=== PATIENT | male | born 1940 | race Caucasian/White ===

== ENCOUNTER 2017-03-04 14:56 | Inpatient (IN) ==
[2017-03-04 15:53] LABS: MANUAL DIFF NEEDED? NO
[2017-03-04 16:02] LABS: BASO% 0.3 % (0.0-0.8); EOS# 0.28 X1000 (0.0-0.7); EOS% 4.8 % (0.0-10.0); HEMATOCRIT 38.8 % (42.0-52.0); LYMPH# 1.38 X1000 (1.2-3.4); LYMPH% 23.8 % (20.5-51.1); MCH 29.7 PG (27-31); MCHC 33.5 g/dL (33-37); MCV 88.8 FL (81-99); MONO# 0.66 X1000 (0.11-0.59); MONO% 11.4 % (1.7-9.3); NEUT% 59.7 % (42.2-75.2); PLT 236 X1000 (130-400); RBC 4.37 XMIL (4.7-6.1)
--- NOTE | 2017-03-04 16:16 | Diag Imaging Result Doc PS360 ---
EXAM: CHEST-2 VIEWS - 03/04/2017 HISTORY: SOB TECHNIQUE: Chest two views COMPARISON: 12/22/2015 FINDINGS: Heart size is normal. There are COPD/emphysematous changes with hyperexpanded lungs. The lungs are mildly more hyperexpanded compared to previous exam, suggesting COPD exacerbation. There a few small granulomas from old granulomatous disease which are stable. Questionable opacity at the mid posterior chest on the lateral view, there is no corresponding opacity identified on the PA view. There is no other consolidation, pleural effusion, or pneumothorax identified. IMPRESSION: COPD/emphysema with hyperexpanded lungs. Questionable opacity at mid posterior chest on lateral view, but not apparent on the PA view. Follow-up by chest radiographs or correlation with CT thorax is recommended. Electronically signed by Manish Ventura 03/04/2017 4:14 PM
[2017-03-04 16:20] LABS: AGAP 10; ALBUMIN 3.2 g/dL (3.5-5.0); ALKALINE PHOSPHATASE 68 U/L (32-122); BUN 26 mg/dL (8-22); CALCIUM 8.3 mg/dL (8.8-10.2); CHLORIDE 102 mmol/L (98-107); COSMO 284; GOT 9 U/L (10-34); GPT 9 U/L (10-44); POTASSIUM 3.8 mmol/L (3.5-5.1); SODIUM 140 mmol/L (136-145); TCO2 28 mmol/L (25-35); TOTAL BILIRUBIN 0.19 mg/dL (0.20-1.00); TOTAL PROTEIN 5.6 g/dL (6.3-8.3)
--- NOTE | 2017-03-04 16:21 | EKG Report ---
Test Performed on : 03/04/2017 3:15:30 PM Test Reason : sob Blood Pressure : / mmHG Vent. Rate : 068 BPM Atrial Rate : 068 BPM P-R Int : 152 ms QRS Dur : 084 ms QT Int : 420 ms P-R-T Axes : 064 068 080 degrees QTc Int : 446 ms Normal sinus rhythm. Septal infarct , age undetermined Abnormal ECG When compared with ECG of 25-DEC-2015 12:49, Significant changes have occurred Unconfirmed Result
--- NOTE | 2017-03-04 16:37 | ED EKG INTERP ---
This chart was entered by Nida Sexton Scribe, acting as scribe for Jacky Franco MD. EKG Interpretation - EKG Time of EKG reading by physician:: 15:15 EKG Read and Signed by:: Jacky Franco EKG Interpretation (*Must complete 3 of following elements*): Abnormal Rate: 68 (septal infarct, age undetermined) Rhythm: NSR Attestation - Physician/ NICHOL Attestation Patient care was provided by Advanced Practice Provider:: No The physician spent face to face time with patient:: Yes Advanced Practice Provider documentation review:: Supervising physician onsite and consulted in the evaluation and care of this patient. The physician did have a face to face encounter with the patient. This chart was documented by the indicated scribe, (Nida Sexton Scribe) and accurately reflects the services I performed and decisions made by meSalvador Wenli X, MD, as attested by the provider's signature.
[2017-03-04] MEDS ORDERED: SOLU-MEDROL IV ONE (16:39)
[2017-03-04] MEDS ORDERED: DUONEB (A & A) INH ONE (16:39)
[2017-03-04 16:42] LABS: ALLEN TEST YES; BE 4.3 mmoll (-3.0-3.0); BLOOD TYPE ARTERIAL; DRAW SITE R RADIAL; O2(CT) 17.8 mL/dL (15.0-23.0); PCO2(98.6) 47 mmHg (35-45); PO2(98.6) 101 mmHg (60-100); SAMPLE BLOOD; SAO2 98.5 % (95.0-100.0); THB 13.8 g/dL (11.5-17.4); pH(98.6) 7.41 (7.35-7.45)
[2017-03-04 16:43] LABS: MODALITY CANNULA
[2017-03-04] MEDS ORDERED: NS 1,000 ML IV ONE (16:51)
--- NOTE | 2017-03-04 17:37 | PROVIDER DOCUMENTATION ---
This chart was entered by Nida Sexton Scribe, acting as scribe for Jacky Franco MD. HPI-Respiratory General - General Chief Complaint: Shortness of Breath Stated Complaint: SOB Time Seen by Provider: 03/04/17 16:38 Source: patient Allergies/Adverse Reactions: Patient Allergies Allergy/AdvReac Type Severity Reaction Status Date / Time No Known Allergies Allergy Verified 03/04/17 15:25 Home Medications: Home Medication List Medication Instructions Recorded Confirmed Last Taken Type Esomeprazole Magnesium [Nexium] 40 mg PO QAM 11/20/13 12/22/15 12/21/15 08:00 History Indapamide 2.5 mg PO QAM 11/20/13 12/22/15 12/21/15 08:00 History Benazepril HCl 20 mg PO BID 12/22/15 12/22/15 12/21/15 20:00 History Rivaroxaban [Xarelto] 15 mg PO QAM 12/22/15 12/22/15 03/04/17 08:30 History BENAZEpril [Lotensin] 20 mg PO BID #0 tablet 01/03/16 Unknown Rx Diltiazem C.d. [Cardizem Cd] 180 mg PO BID #60 capsule NS 01/03/16 Unknown Rx Fluticasone/Salmet 250/50 INH 1 puff INH RTBID #1 inhaler 01/03/16 03/04/17 08: 00 Rx [Advair 250/50 Diskus] Levofloxacin 500 mg PO DAILY #30 tablet NS 01/03/16 Unknown Rx Methylprednisolone [Medrol Dosepak] 4 mg PO DIRECTED #1 package NS 01/03/16 Unknown Rx Tiotropium [place] Inhaler 1 puff INH RTDAILY #30 inhaler 01/03/16 03/04/17 08: 00 Rx [Spiriva] Albuterol [Albuterol Neb] 2.5 mg INH Q4H PRN PRN 03/04/17 03/04/17 03/04/17 13: 00 History Alprazolam [Xanax] 0.5 mg PO Q6H PRN PRN 03/04/17 03/04/17 03/04/17 08:00 History Diltiazem HCl [Cartia Xt] 180 mg PO DAILY 03/04/17 03/04/17 Unknown History Prednisone [Prednisone] 5 mg PO DAILY 03/04/17 03/04/17 Unknown History - History of Present Illness-Resp Nature of Presenting Problem: Pt is a 76 year old male who came to the ED with a cc of SOB and coughing up sputum. Pt reports his nebulizer is not helping. Quality of Pain: reports: none Severity in ED: reports: mild Onset/Duration: reports: unsure Timing: reports: still present Exposure: reports: unknown cause Cough Quality/Degree: reports: mild, sputum Episode Frequency: frequent episodes Current Respiratory Medication Therapy: Initiated A/A nebulizer Associated Symptoms: reports: cough, shortness of breath, short of breath Similar Symptoms Previously?: Yes Recently seen or treated by another doctor?: No Review of Systems - Adult - REVIEW OF SYSTEMS - ADULT Constitutional: denies: chills, fever Eyes: reports: no symptoms reported Ears, Nose, Mouth & Throat: denies: ear pain, nose pain Cardiovascular: reports: no symptoms reported Respiratory: reports: cough, excessive sputum production, shortness of breath, wheezing. denies: chronic cough, dyspnea on exertion, pleurisy Gastrointestinal: denies: abdominal pain, diarrhea, nausea, vomiting Genitourinary: reports: no symptoms reported Musculoskeletal: reports: no symptoms reported Integumentary: reports: no symptoms reported Neurological: reports: no symptoms reported Psychiatric: reports: no symptoms reported Endocrine: reports: no symptoms reported Hematologic/Lymphatic: reports: no symptoms reported Allergic/Immunologic: reports: no symptoms reported All Other Systems: Reviewed and Negative Past History - Adult - PAST MEDICAL HISTORY-ADULT Review of Records: reports: Old Records Reviewed, Nursing Assessment Review Major Childhood Illnesses: reports: denies history Cardiovascular: reports: blood clots (PE--on Coumadin), HTN Respiratory: reports: COPD Gastrointestinal: reports: ulcer Obstetrical/Gynecological: reports: denies history Genitourinary: reports: prostate cancer Musculoskeletal: reports: denies history Neurological: reports: denies history Endocrine/Immune: reports: denies history Other Conditions: reports: denies history - PRIOR SURGERIES/PROCEDURES Surgical/Procedure History: reports: other (prostate) - IMMUNIZATION STATUS Childhood Immunizations: See Nurse Assessment Flu Vaccine: See Nurse Assessment - FAMILY HISTORY Family History: reviewed, not pertinent - SOCIAL HISTORY Smoking: quit less than 1 year Physical Exam-General - PHYSICAL EXAM-ADULT Initial Vital Signs Reviewed: Yes - CONSTITUTIONAL General Appearance: appears well, alert, no apparent distress - EYES Eyes: PERRL/EOMI, pink conjunctivae - HEAD, EARS, NOSE, MOUTH & THROAT HENMT: normocephalic/atraumatic, moist mucous membranes - NECK Neck: non-tender, full range of motion - RESPIRATORY Respiratory: chest non-tender, decreased breath sounds, wheezing - CARDIOVASCULAR Cardiovascular: normal peripheral pulses, regular rate, rhythm - GASTROINTESTINAL (ABDOMEN) Abdominal Exam: normal bowel sounds, non tender, soft - MUSCULOSKELETAL Back Exam: normal inspection, no CVA tenderness Extremity: normal range of motion, non-tender - SKIN Integumentary: normal color, normal turgor - NEUROLOGIC Neurologic: grossly normal - PSYCHIATRIC Psych/Mental Status: normal mood/affect, normal thought content, normal thought process, oriented x 3 Progress - PLAN OF CARE/RESULTS Progress/Plan/Lab Results: Vital Signs - 8 hr 03/04/17 15:11 03/04/17 16:57 03/04/17 17:13 Temperature 97.7 F Pulse Rate 78 62 65 Respiratory Rate 14 18 23 Blood Pressure 137/84 125/100 O2 Sat by Pulse Oximetry 93 L 99 Laboratory Results - last 24 hr 03/04/17 03/04/17 03/04/17 14:40 14:40 15:33 WBC 5.79 RBC 4.37 L Hgb 13.0 L Hct 38.8 L MCV 88.8 MCH 29.7 MCHC 33.5 RDW Std Deviation 14.2 Plt Count 236 MPV 9.0 Immature Gran % (Auto) 0.0 Neut % (Auto) 59.7 Lymph % (Auto) 23.8 [place] % (Auto) 11.4 H Eos % (Auto) 4.8 Baso % (Auto) 0.3 Immature Gran # (Auto) 0.00 Neut # (Auto) 3.45 Lymph # (Auto) 1.38 [place] # (Auto) 0.66 H Eos # (Auto) 0.28 Baso # (Auto) 0.02 Specimen Type Sample Site pH pCO2 pO2 HCO3 Base Excess Oxyhemoglobin ABG O2 Sat (Calculated) ABG O2 Saturation ABG Carboxyhemoglobin ABG Methemoglobin Irvin Test A-a O2 Difference Total Hemoglobin Lactate Liter Flow Blood Gas Modality FiO2 % Sodium Potassium Chloride Carbon Dioxide Anion Gap BUN Creatinine Estimated GFR/1.73 m2 BUN/Creatinine Ratio Glucose Calculated Osmolality Calcium Total Bilirubin AST ALT Alkaline Phosphatase Creatine Kinase 123 Troponin T 0.022 Total Protein Albumin Globulin Albumin/Globulin Ratio 03/04/17 03/04/17 15:33 16:27 WBC RBC Hgb Hct MCV MCH MCHC RDW Std Deviation Plt Count MPV Immature Gran % (Auto) Neut % (Auto) Lymph % (Auto) [place] % (Auto) Eos % (Auto) Baso % (Auto) Immature Gran # (Auto) Neut # (Auto) Lymph # (Auto) [place] # (Auto) Eos # (Auto) Baso # (Auto) Specimen Type ARTERIAL Sample Site R RADIAL pH 7.41 pCO2 47 H pO2 101 H HCO3 28.1 H Base Excess 4.3 H Oxyhemoglobin 90.9 L ABG O2 Sat (Calculated) 17.8 ABG O2 Saturation 98.5 ABG Carboxyhemoglobin 6.80 H* ABG Methemoglobin 1.0 Irvin Test YES A-a O2 Difference 68.0 Total Hemoglobin 13.8 Lactate 0.60 Liter Flow 3.0 Blood Gas Modality CANNULA FiO2 % 32.0 Sodium 140 Potassium 3.8 Chloride 102 Carbon Dioxide 28 Anion Gap 10 BUN 26 H Creatinine 1.1 Estimated GFR/1.73 m2 > 60 BUN/Creatinine Ratio 24 Glucose 90 Calculated Osmolality 284 Calcium 8.3 L Total Bilirubin 0.19 L AST 9 L ALT 9 L Alkaline Phosphatase 68 Creatine Kinase Troponin T Total Protein 5.6 L Albumin 3.2 L Globulin 2.4 Albumin/Globulin Ratio 1.3 Orders Category Date Time Status CHEST-2 VIEWS [RAD] Stat Exams 03/04/17 15:[address] ANGIOGRM/PULMONARY ARTERIES [CT] Stat Exams 03/04/17 16:51 Completed ABG [RESP] Routine Lab 03/04/17 16:27 Completed CBC WITH DIFF [HEME] Stat Lab 03/04/17 15:33 Completed CK PROFILE [SP CHEM] Stat Lab 03/04/17 14:40 Completed CMP [COMPREHENSIVE METABOLIC PANEL] [CHEM] Stat Lab 03/04/17 15:33 Completed TROPONIN T Stat Lab 03/04/17 14:40 Completed UA NIMS W/REFLEX CULT [URINALYSIS] Stat Lab 03/04/17 16:27 Uncollected 0.9% Sodium Chloride Inj [Ns] 1,000 ml Med 03/04/17 16:51 Discontinued IV 999 mls/hr Albuterol 2.5MG/Ipratrop 0.5MG [Duoneb (A & A)] Med 03/04/17 16:39 Discontinued 6 ml INH NOW ONE Methylprednisolone Sod Succ [Solu-Medrol] Med 03/04/17 16:39 Discontinued 125 mg IV NOW ONE Aerosol Treatments Routine Oth 03/04/17 16:39 Completed Aerosol Treatments Stat Oth 03/04/17 16:39 Completed EKG [EKG] Stat Ther 03/04/17 15:10 Draft EKG [EKG] Stat Ther 03/04/17 16:27 Ordered Result Diagrams: 03/04/17 15:33 03/04/17 15:33 - XRAY 1 XRAY Study: Chest (COPD/emphysema w hyper expanded lungs.) - CT/MRI 1 CT Study: Thorax Impression: Abnormal CT Results: LLL mass concerns for malignancy - CONSULTS/PCP/HOSPITALIST Notification #1 *Consult/PCP/Hospitalist*: Dr. Amado Time Discussed: 18:15 Consult Disposition: Will see in ED, Admit - CHANGE OF SHIFT REPORT (ED Provider) Report Given and Care Transferred to:: Dr. Ely Time of Transfer: 18:00 Items Pending: Labs, CT/MRI Results, Other (Dispo) Departure - Departure Date of Disposition Decision: 03/04/17 Time of Disposition Decision: 18:16 DIAGNOSIS: SOB (shortness of breath), Lung mass Disposition: ADMITTED INPATIENT 09 Certified Medical Emergency: Emergent Condition: Stable Referrals and Follow-Ups: Low Robb Jr, MD [Primary Care Provider] - - Critical Care Note This patient required my direct & personal management of CC.: No Attestation - Physician/ NICHOL Attestation Patient care was provided by Advanced Practice Provider:: No The physician spent face to face time with patient:: Yes Advanced Practice Provider documentation review:: Supervising physician onsite and consulted in the evaluation and care of this patient. The physician did have a face to face encounter with the patient. This chart was documented by the indicated scribe, (Nida Sexton Scribe) and accurately reflects the services I performed and decisions made by me, Jacky Franco MD, as attested by the provider's signature.
--- NOTE | 2017-03-04 17:53 | Diag Imaging Result Doc PS360 ---
EXAM: CT ANGIOGRM/PULMONARY ARTERIES - 03/04/2017 HISTORY: Pos CXR, per Radiology request TECHNIQUE: With intravenous contrast. Axial, reformatted coronal MIP, and reformatted 3-D rotating MIP images obtained. Dose reduction protocol used. COMPARISON: 11/30/2011 FINDINGS: There are no filling defects identified in the pulmonary arteries. There is no indication of aortic dissection. There are substantial COPD/emphysematous changes. There is a 3.7 x 2.9 cm soft tissue mass at the posterior medial left lower lobe. This abuts the descending aorta and paraspinal pleural margin. There are mildly enlarged lymph nodes at the nearby posterior left hilum. There are no abnormally enlarged mediastinal lymph nodes identified. There are nonspecific small mediastinal lymph nodes which are overall less prominent compared to previous exam. There is no pleural effusion or pneumothorax identified. Included sections of upper abdomen show multiple small low-density gallstones in the gallbladder. There are bilateral renal cysts, and there are nonobstructing stones in the left kidney. IMPRESSION: No evidence of pulmonary embolism. Substantial COPD/emphysematous changes. 3.7 x 2.9 cm soft tissue mass at paraspinal left lower lobe. Mildly enlarged lymph nodes at nearby posterior left hilum. These findings are suspicious for malignancy. Electronically signed by Manish Ventura 03/04/2017 5:51 PM
[2017-03-04] MEDS ORDERED: AMBIEN PO PRN (19:20)
[2017-03-04] MEDS ORDERED: XANAX PO PRN (19:22)
[2017-03-04] MEDS: ADVAIR 250/50 DISKUS INH SCH (20:00)
--- NOTE | 2017-03-04 20:02 | HISTORY AND PHYSICAL ---
CHIEF COMPLAINT: Shortness of breath, cough, and wheezing for the last 2 weeks. HISTORY OF PRESENT ILLNESS: He is a 76-year-old, white male patient of Dr. Robb , came to the emergency room for upper respiratory symptoms with shortness of breath and cough and wheezing. Chest x-ray showed COPD changes. He continues to smoke. He was seen in Dr. Robb office [address] of the chest showed a mass in the left lower lobe close to the paraspinal area. It is easy accessible for a CT-guided biopsy from the back. Basically admitted to the hospital for a tissue diagnosis and treatment and optimize for COPD exacerbation. PAST MEDICAL HISTORY: COPD. History of pulmonary embolism, prostate cancer, paroxysmal atrial fibrillation. Ongoing tobacco abuse. PAST SURGICAL HISTORY: Bilateral cataract surgery. GJ vagotomy. MEDICINES: Lozol 125/2.5 mg daily, Nexium 40 daily, benazepril 20 p.o. b.i.d., Xarelto 15 daily, Cardizem 180 p.o. b.i.d., Advair 250/50 one puff p.o. b.i.d., Spiriva 1 puff daily. Xanax 0.5 q.6. ALLERGIES: Not known. SOCIAL HISTORY: Lives in [place] with a daughter. Retired from moving. Smoking half a pack a day. No alcohol. FAMILY HISTORY: Mom is of heart failure at 65. Father at 79 from prostate cancer. HEALTH MAINTENANCE: Flu vaccine 2016. Pneumococcal vaccine up-to-date. REVIEW OF SYSTEMS: HEENT: No headache. No dizziness. No earache. No sore throat. Neck: No goiter. No lymphadenopathy. No carotid bruits. Cardiopulmonary: No chest pain, shortness of breath on exertion. No PND. No orthopnea. No swelling of feet. GI: No nausea, vomiting, abdominal pain. : History of hesitancy, frequency. Diagnosed with prostate cancer recently by Dr. Arias. No back pain. Neurologic: No focal symptoms or weakness. PHYSICAL EXAMINATION: VITAL SIGNS: 6 feet 2 inches, 160 pounds. Afebrile, blood pressure is stable. HEENT: Atraumatic, normocephalic. Pupils equal, reactive to light. Bilateral cataract surgery done. Tongue is in midline. Had papules on the dorsal area of the tongue noted. NECK: Supple. JVD is normal. CHEST: Poor air entry. HEART: Sounds are distant, no murmurs. ABDOMEN: Belly is soft, nontender. Good bowel sounds. No masses palpable. RECTAL: Deferred. EXTREMITIES: No peripheral edema, cyanosis. NEUROLOGIC: No obvious neurological deficits. INVESTIGATIONS: CBC: White cell count 5.7, hematocrit 38, platelets 236. ABG : pH is 7.41, pCO2 of 47, pO2 of 101, bicarb 28, carboxyhemoglobin 6.8 on 32%. SMA-7 is normal. Calcium is normal. LFTs were normal. CK troponin were normal. LFTs were normal. Chest x-ray: COPD changes. EKG is normal sinus. Septal infarct, nothing acute. CT pulmonary angiogram. No evidence of PE, substantial COPD changes. Soft tissue paraspinal mass in the left lower lobe. and lymph nodes nearby in the posterior hilum. ASSESSMENT AND PLAN: A 76-year-old white male, admitted to the hospital for: 1. Acute chronic obstructive pulmonary disease exacerbation. Oxygen bronchodilators, IV steroids, IV antibiotics. 2. Gastrointestinal prophylaxis with IV Protonix. 3. History of pulmonary embolism and deep vein thrombosis on Xarelto. We will hold the medicine for the next 24 hours. 4. Left lower lobe mass easily accessible to do the biopsy from the back. CT- guided biopsy in the morning. Check the CEA levels. 5. Reconcile home medications. 6. History of paroxysmal atrial fibrillation. Last cardiac stress tests 2014 was negative. He is on Xarelto. He is taking diltiazem. 7. Vaccinations are up-to-date. Dr. Robb is going to follow up. Discussed with the family members. cc: MD Low Lemos Jr, MD MTDD
[2017-03-04 22:25] LABS: URINE CULTURE NEEDED? NO; URINE MICRO REVIEW NEEDED? NO; URINE SOURCE CLEAN CATCH
[2017-03-04 22:35] LABS: BILIRUBIN URINE NEGATIVE (NEGATIVE); BLOOD URINE NEGATIVE (NEGATIVE); COLOR YELLOW; GLUCOSE URINE NEGATIVE (NEGATIVE); LEUKOCYTES URINE NEGATIVE (NEGATIVE); NITRITE URINE NEGATIVE (NEGATIVE); PROTEIN URINE NEGATIVE (NEGATIVE); SP GRAVITY URINE 1.026; TURBIDITY URINE CLEAR (CLEAR); UR EPITHELIAL CELLS <10 /HPF (<10); URINE BACTERIA NEGATIVE /HPF; URINE RBC <10 /HPF (<10); URINE WBC <10 /HPF (<10); UROBILINOGEN URINE NORMAL (NORMAL)
[2017-03-04] MEDS: PROTONIX IV SCH (22:54)
[2017-03-04] MEDS: SOLU-MEDROL IV SCH (22:54)
[2017-03-04] MEDS: LOTENSIN PO SCH (22:54)
[2017-03-04] MEDS: CARDIZEM CD PO SCH (22:54)
[2017-03-04] MEDS: ROCEPHIN 1 GM in NS 50 ML IV SCH (22:55)
[2017-03-04] MEDS: NS 1,000 ML IV SCH (22:55)
[2017-03-04] MEDS: LEVAQUIN 500 MG/D5W 500 MG/100 ML IVPB IV SCH (23:55)
[2017-03-05] MEDS: SOLU-MEDROL IV SCH ×3 (03:37→20:14)
--- NOTE | 2017-03-05 06:37 | EKG Report ---
Test Performed on : 03/04/2017 4:29:59 PM Test Reason : BRADYCARDIA Blood Pressure : / mmHG Vent. Rate : 062 BPM Atrial Rate : 062 BPM P-R Int : 162 ms QRS Dur : 088 ms QT Int : 436 ms P-R-T Axes : 066 074 083 degrees QTc Int : 442 ms Normal sinus rhythm. Septal infarct (cited on or before 04-MAR-2017) Abnormal ECG When compared with ECG of 04-MAR-2017 15:15, (Unconfirmed) No significant change was found Unconfirmed Result
[2017-03-05 07:01] LABS: INR 1.18; PROTIME 12.5 Seconds (9.2-11.7)
[2017-03-05 07:10] LABS: HEMATOCRIT 41.2 % (42.0-52.0); HEMOGLOBIN 14.1 g/dL (14.0-18.0); LYMPH# 0.49 X1000 (1.2-3.4); LYMPH% 11.5 % (20.5-51.1); MANUAL DIFF NEEDED? YES; MCH 29.7 PG (27-31); MCHC 34.2 g/dL (33-37); MCV 86.9 FL (81-99); MONO# 0.02 X1000 (0.11-0.59); MONO% 0.5 % (1.7-9.3); MPV 9.8 FL (7.4-10.4); PLT 229 X1000 (130-400); RBC 4.74 XMIL (4.7-6.1)
[2017-03-05 07:15] LABS: AGAP 12; BUN 22 mg/dL (8-22); CALCIUM 8.9 mg/dL (8.8-10.2); CHLORIDE 102 mmol/L (98-107); COSMO 281; POTASSIUM 4.3 mmol/L (3.5-5.1); SODIUM 138 mmol/L (136-145); TCO2 24 mmol/L (25-35)
[2017-03-05 07:17] LABS: BANDS 8 % (0-1); LYMPHS 12 % (21-51)
[2017-03-05] MEDS ORDERED: SPIRIVA INH SCH (07:30)
--- NOTE | 2017-03-05 09:25 | Diag Imaging Result Doc PS360 ---
EXAM: CHEST-2 VIEWS INDICATION: POST BIOPSY TECHNIQUE: 2 views (inspiration/expiration) COMPARISON: 03/04/2017 FINDINGS: There is no evidence of pneumothorax status post left lung biopsy. COPD changes are again noted. No new consolidations are appreciated. Cardiac silhouette is stable. IMPRESSION: No evidence of pneumothorax status post left lung biopsy. Stable chest, otherwise. Electronically signed by Holden Rodgers 03/05/2017 9:23 AM
[2017-03-05] MEDS: ADVAIR 250/50 DISKUS INH SCH ×2 (10:35→20:09)
[2017-03-05] MEDS: DUONEB (A & A) INH PRN ×2 (10:35→21:13)
[2017-03-05] MEDS: LOTENSIN PO SCH ×2 (11:04→20:14)
[2017-03-05] MEDS: CARDIZEM CD PO SCH ×3 (11:04→20:16)
--- NOTE | 2017-03-05 11:24 | Diag Imaging Result Doc PS360 ---
EXAM: CT GUIDED BIOPSY LUNG INDICATION: Lung Mass TECHNIQUE: COMPARISON: 03/04/2017 FINDINGS: Risks, benefits, and alternatives were discussed with the patient and informed consent was obtained. The patient was placed in a prone position and was prepped and draped in sterile fashion. Local anesthesia was achieved with 1% lidocaine solution. Using CT guidance, an 18-gauge coaxial biopsy needle system was used to obtain four 1.3 cm core biopsies from the mass at the superior aspect of the left lower lobe. A postprocedural scan showed no significant hematoma in or around the tumor bed. A postprocedural chest radiograph showed no pneumothorax. There were no known complications. IMPRESSION: Technically successful CT-guided left lower lobe lung biopsy with no known complications. Electronically signed by Holden Rodgers 03/05/2017 11:22 AM
--- NOTE | 2017-03-05 11:59 | PROGRESS NOTE ---
DATE: 03/05/2017 SUBJECTIVE: The patient says he is hungry. He is breathing a little bit better. He came in yesterday with exacerbation of COPD and what looked like an opacity in the posterior left lower lobe of his lung seen only on the lateral view. CT angiogram showed that this was a possible mass. He has CT-guided biopsy of this lesion earlier today. He seems to have had no complications from it. OBJECTIVE: Vital Signs: Vital signs show a temperature of 99 degrees Fahrenheit, blood pressure 114/38, respirations 18, pulse 74 and regular. Has had a history of atrial fibrillation. O2 saturation on 2 L per nasal cannula is 97%. Laboratory is essentially normal. HEENT: Normocephalic. EOMS intact. PERRLA. Throat clear. Lungs: Have a few scattered wheezes. Heart: Regular rate rhythm without murmurs, gallops, or friction rubs. Abdomen: Soft. Active bowel sounds. No organomegaly or tenderness. Neurological exam: Intact grossly. The patient says he has continued to smoke. He gave up alcohol about a year ago. ASSESSMENT: 1. Lung mass. 2. Exacerbation of chronic obstructive pulmonary disease. 3. Hypertension. 4. History of pulmonary embolism. 5. Anxiety. PLAN: Will consult pulmonology, await biopsy report. Treat the exacerbation of chronic obstructive pulmonary disease. cc: Low Robb Jr, MD
[2017-03-05] MEDS: ROCEPHIN 1 GM in NS 50 ML IV SCH (20:13)
[2017-03-05] MEDS: SODIUM CHLORIDE 0.9% INJ SCH (20:13)
[2017-03-05] MEDS: PROTONIX IV SCH (20:13)
[2017-03-05] MEDS: NS 1,000 ML IV SCH (20:14)
[2017-03-05] MEDS: LEVAQUIN 500 MG/D5W 500 MG/100 ML IVPB IV SCH (22:28)
[2017-03-06] MEDS: SOLU-MEDROL IV SCH ×3 (03:47→21:01)
--- NOTE | 2017-03-06 08:46 | CONSULTATION ---
DATE OF CONSULTATION: 03/06/2017 REFERRING PHYSICIAN: Dr. Robb. CHIEF COMPLAINT: Shortness of breath. HISTORY OF PRESENT ILLNESS: This is a 76-year-old, male with a past medical history of COPD, PE, prostate cancer, atrial fibrillation, and tobacco abuse who presented to the hospital with complaints of shortness of breath. He was recently diagnosed with a mass in the left lower lobe. He also presents with a COPD exacerbation. He denies any fever, chills, headache, dizziness, chest pain, nausea, vomiting, or diarrhea. REVIEW OF SYSTEMS: A 10-point review of systems was conducted. Pertinent as noted in the HPI, otherwise noncontributory. PAST MEDICAL HISTORY: As mentioned in the HPI, otherwise noncontributory. PAST SURGICAL HISTORY: Cataracts bilaterally and a GJ vagotomy. ALLERGIES: No known drug allergies. FAMILY HISTORY: Notable for heart failure and prostate cancer. SOCIAL HISTORY: The patient lives at home with his daughter. Smokes a half pack per day of cigarettes. Denies use of alcohol or illicit drugs. PHYSICAL EXAMINATION: Vital Signs: Temperature 97.9, heart rate 98, respiratory rate 24, blood pressure 120/60, oxygen saturation 99%. General: Awake, alert. Sitting up in bed, no acute distress noted. HEENT: Normocephalic and atraumatic. PERRL. Cardiovascular: S1-S2 present. Chest: Reduced entry with some expiratory wheezes noted. Abdomen: Soft, nontender, nondistended. Bowel sounds present in all quadrants. Extremities: Distal pulses palpable. No edema noted. Neurologic: Alert and oriented. No focal deficits. LABS AND INVESTIGATIONS: Labs from 03/05/2017, WBC 4.26, RBC 4.74, hemoglobin 14.1, hematocrit 41.2, platelet count 229,000. Sodium 138, potassium 4.3, chloride 102, CO2 24, anion gap 12, BUN 22, creatinine 1, glucose 134. ASSESSMENT AND PLAN: This is a 76-year-old, male with a past medical history as mentioned in the history of present illness that presented to the hospital with complaints of shortness of breath. He is admitted for a tissue diagnosis from his left lower lobe mass biopsy and chronic obstructive pulmonary disease exacerbation. Continue inhaled bronchodilators, intravenous steroids, supplemental oxygen, broad-spectrum antibiotics, gastrointestinal prophylaxis, and continue home dose of Xarelto for deep venous thrombosis prophylaxis once appropriate. Further recommendations pending diagnostic studies. Thanks for the courtesy of this consult. Dictated by DEE Ayala for Denis Rosado MD cc: DEE Ayala MD Roger H. Moss Jr, MD
--- NOTE | 2017-03-06 09:32 | PROGRESS NOTE ---
DATE: 03/06/2017 SUBJECTIVE: The patient states that his breathing is doing much better now. OBJECTIVE: Vital Signs: Blood pressure 135/73, respirations 22, pulse 77, temperature 98.1 degrees Fahrenheit. Oxygen saturation on room air was 99% earlier. He is back on oxygen right now, but O2 sats are looking better. HEENT: Normocephalic. EOMs intact. PERRLA. Throat clear. Lungs: Clear to auscultation and percussion without rhonchi, rales, or wheezes. Heart: Regular rate and rhythm without murmurs, gallops, or friction rubs. Abdomen: Soft. Active bowel sounds. No organomegaly or tenderness. Neurological Examination: Cranial nerves 2-12 intact grossly. Sensory and motor intact. Reflexes 1+ all. ASSESSMENT: 1. Exacerbation of chronic obstructive pulmonary disease. 2. Left lower lobe lung mass. 3. History of atrial fibrillation, now in sinus rhythm. 4. History of pulmonary embolism. PLAN: Continue treatment as exacerbation of chronic obstructive pulmonary disease with antibiotics and steroids. This seems to be improving. Awaiting path report on biopsy of lung mass. Appreciate help from Dr. Rosado, Pulmonology. cc: Low Robb Jr, MD
[2017-03-06] MEDS: DUONEB (A & A) INH PRN ×3 (09:42→19:27)
[2017-03-06] MEDS: ADVAIR 250/50 DISKUS INH SCH ×2 (09:42→19:27)
[2017-03-06] MEDS: CARDIZEM CD PO SCH ×2 (10:37→21:02)
[2017-03-06] MEDS: LOTENSIN PO SCH ×2 (10:38→21:02)
[2017-03-06] MEDS: ROCEPHIN 1 GM in NS 50 ML IV SCH (21:02)
[2017-03-06] MEDS: PROTONIX IV SCH (21:02)
[2017-03-06] MEDS: SODIUM CHLORIDE 0.9% INJ SCH (21:02)
[2017-03-06] MEDS: NS 1,000 ML IV SCH (21:06)
[2017-03-06] MEDS: LEVAQUIN 500 MG/D5W 500 MG/100 ML IVPB IV SCH (22:40)
[2017-03-07] MEDS: SOLU-MEDROL IV SCH ×4 (03:31→15:42)
[2017-03-07 06:43] LABS: HEMATOCRIT 39.8 % (42.0-52.0); HEMOGLOBIN 13.5 g/dL (14.0-18.0); IMM GRAN# 0.04 X1000 (0.0-0.04); IMM GRAN% 0.3 % (0.0-0.5); LYMPH# 0.38 X1000 (1.2-3.4); LYMPH% 2.6 % (20.5-51.1); MANUAL DIFF NEEDED? YES; MCH 29.7 PG (27-31); MCHC 33.9 g/dL (33-37); MCV 87.5 FL (81-99); MONO# 0.52 X1000 (0.11-0.59); MONO% 3.6 % (1.7-9.3); MPV 9.2 FL (7.4-10.4); NEUT% 93.5 % (42.2-75.2); PLT 243 X1000 (130-400); RBC 4.55 XMIL (4.7-6.1)
[2017-03-07 07:12] LABS: AGAP 13; BUN 35 mg/dL (8-22); CALCIUM 8.7 mg/dL (8.8-10.2); CHLORIDE 100 mmol/L (98-107); COSMO 289; SODIUM 140 mmol/L (136-145); TCO2 27 mmol/L (25-35)
[2017-03-07 07:16] LABS: LYMPHS 2 % (21-51); MONO 2 % (1-9)
[2017-03-07] MEDS: LOTENSIN PO SCH (09:39)
[2017-03-07] MEDS: CARDIZEM CD PO SCH (09:40)
[2017-03-07] MEDS: ADVAIR 250/50 DISKUS INH SCH (10:16)
[2017-03-07] MEDS: DUONEB (A & A) INH PRN ×2 (10:16→15:20)
[2017-03-07 13:54] VITALS: BP 132/64
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
== END 2017-03-07 15:41 | disposition home or self-care (01) ==
LOC: ED 14:56 → 3N 18:38
PROVIDERS: ADMIT Emergency Medicine; ATTEND Emergency Medicine